=== PATIENT | female | born 1970 | race Caucasian/White ===

== ENCOUNTER 2023-03-28 18:22 | Inpatient (IN) | payer BC, SELFPAY ==
[2023-03-28] VITALS (7 sets, daily range): BP systolic 97–180; BP diastolic 65–94; BMI 27.0; BMI 27.4
[2023-03-28] MEDS: NSS 1000 IV ×2 (16:08→20:29)
--- NOTE | 2023-03-28 16:11 | ED.GENMED ---
History of Present Illness
General
Chief Complaint: Breathing Problem
Time Seen by Provider: 03/28/23 15:58
Travel History
Have you had any contact with someone who has COVID-19?: No
Do you have any symptoms of coronavirus? Fever > 100 degrees, chills, cough, shortness of breath, sore throat, loss of taste or smell, muscle aches, or headache?: Yes
Symptoms:: SOB
History of Present Illness
History of Present Illness:
50-year-old previously healthy female presents to the emergency department for evaluation of right-sided chest discomfort associated with shortness of breath and minimal coughing for the past 3 to 5 days. She also reports poor appetite,
lightheadedness, and general malaise. Denies any preceding viral syndrome in the past month. No leg swelling or calf cramping. No orthopnea but does have dyspnea on exertion. Denies any hemoptysis. No recent travel, prolonged immobilization,
recent surgeries in the past 12 weeks. Does not take any exogenous hormones. No ill contacts at home. Non-smoker
Review of Systems
Review of Systems
Allergies reviewed?: Yes
All Other Systems: ROS reviewed and negative except as documented in HPI and ROS
Phy Exam
Physical Exam
Physical Exam:
GEN: Well appearing, NAD, WDWN
Eyes: PERRLA, EOMs intact, no scleral icterus
HENT: NCAT, oral mucosa moist
Lungs: Tachypneic with no accessory muscle use, poor inspiratory effort limits exam, no clear adventitious lung sounds
Cardiac: RRR, no M/R/G, no peripheral edema. Radial pulses 2+ bilat
Abdomen: S, NT, ND, NABS, no masses or hepatosplenomegaly
Neuro: AO x 3
MSK: No gross deformity or ecchymosis.
Skin: No rashes, petechiae. Normal color, no pallor or jaundice.
Psych: Calm, cooperative, proper hygiene
Scores
Heart Failure Risk
Heart Failure Risk Score: Not Applicable
Course
Orders/Labs/Results
Orders:
Orders
03/28/23 15:55
EKG [Electrocardiogram (*1)] Urgent
Reason for Study: Shortness of Breath
EKG- Treatment ONCE
03/28/23 16:07
0.9% Sodium Chloride 1000 ml [Nss] 1,000 ml IV BOLUS
03/28/23 16:10
Cardiac Monitoring- Treatment ONCE
CR Chest - 2 Views Urgent
Comment:
Reason For Exam: fever, R chest pain, cough
03/28/23 16:20
COVID-19 Antigen Urgent
Source: Nasal Swab
Complete Blood Count/With Diff Urgent
Comprehensive Metabolic Panel Urgent
Glycohemoglobin (HgbA1c) Urgent
Lactic Acid Q4H
Comment: CANCEL 2nd LACTIC ACID IF 1st LACTIC ACID IS LESS THAN 2
NT-proBNP Urgent
Prothrombin Time Urgent
Troponin I Urgent
Blood Culture Q30M
ROSIO Source: Blood/Venous
Specimen Description:
Influenza A+B Rapid Molecular Urgent
ROSIO Source: Nasal Swab
Specimen Description:
03/28/23 16:34
Blood Culture Q30M
ROSIO Source: Blood/Venous
Specimen Description:
03/28/23 16:47
Acetaminophen [Tylenol] 1,000 mg PO NOW STA
Azithromycin 500 mg/250 ml [Zithromax Infusion] 500 mg in 250 ml IV NOW
CefTRIAXone [Rocephin] 1,000 mg IV NOW STA
03/28/23 17:38
CT Chest Pe Study Urgent
Comment:
Reason For Exam: R chest pain, wedge shaped PNA
03/28/23 18:09
Admit/Transfer Patient As Directed
Co-Sign Provider:
Level of Care: Inpatient admission
Assign to:: Medical/Surgical
Physician / Group: Hospitalist
Diagnosis: RUL PNA
Reason for Hospitalization: RUL PNA
Expected length of stay greater than two midnights?: Yes
ELOS- Estimated Length of Stay in days: 3
I certify the patient meets the requirements for IP care: Yes
03/28/23 18:10
Code Status As Directed
Resuscitation Status: Full Code
03/28/23 19:28
0.9% Sodium Chloride 1000 ml [Nss] 1,000 ml IV 200 mls/hr
03/28/23 19:28
Respiratory Culture/Gram Stain Routine
ROSIO Source: Sputum
Specimen Description:
Activity As Directed
Activity Level: Out of Bed-Early Mobility
Intake/ Output As Directed
Frequency: Per unit guidelines
Pneumatic Compression Sleeves As Directed
Type: Knee high
Vital Signs As Directed
Frequency: Per unit guidelines
Weight As Directed
Frequency: Once
Comment: on admission
DX Deep Vein Thrombosis Video Routine
03/28/23 19:30
Ibuprofen [Motrin] 400 mg PO TIDPRN PRN
03/29/23 Breakfast
Regular
Basic Metabolic Panel IN AM
Complete Blood Count/No Diff IN AM
03/29/23 18:00
Azithromycin 500 mg/250 ml [Zithromax Infusion] 500 mg in 250 ml IV Q24H
CefTRIAXone [Rocephin] 1,000 mg IV Q24H
Abnormal Lab Results
03/28/23
16:20
WBC 19.7 H 10^3/uL
(4.8-10.8)
RBC 3.99 L 10^6/uL
(4.20-5.40)
Hct 34.5 L %
(37.0-47.0)
Abs Immat Gran (auto) 0.3 H 10^3/uL
(0-0.05)
Absolute Neuts (auto) 17.5 H 10^3/uL
(1.4-6.5)
Absolute Lymphs (auto) 0.8 L 10^3/uL
(1.2-3.4)
Absolute Monos (auto) 1.0 H 10^3/uL
(0.1-0.6)
Immature Gran % 1.7 H %
(0-0.5)
Neutrophils % 88.5 H %
(42.2-75.2)
Lymphocytes % 4.2 L %
(20.5-51.1)
PT 14.9 H Sec
(11.4-14.6)
Sodium 130 L mmol/L
(135-145)
Chloride 95 L mmol/L
(98-107)
Glucose 121 H mg/dl
(70-99)
ALT 36 H U/L
(0-35)
Alkaline Phosphatase 240 H U/L
(38-126)
03/28/23 16:20
03/28/23 16:20
Vital Signs
Initial and Last Documented VS:
Initial Vital Signs
Temp Pulse Resp BP Pulse Ox
99.0 F 140 18 180/94 99
03/28/23 15:53 03/28/23 15:53 03/28/23 15:53 03/28/23 15:53 03/28/23 15:53
Last Documented Vital Signs
Temp Pulse Resp BP Pulse Ox
97.7 F 114 18 106/76 96
03/28/23 19:00 03/28/23 19:00 03/28/23 19:00 03/28/23 19:00 03/28/23 19:00
MDM/Problems Addressed
MDM/Problems Addressed:
Initial diagnostic considerations include right-sided pneumonia, pulmonary embolism, viral syndrome with pleuritis, less likely NE or aortic dissection. Initial labs revealed leukocytosis with a dense right upper lobe infiltrate consistent with
acute. Although she has not found hypoxic, the density of the infiltrate coupled with leukocytosis is consistent with sepsis thus we will admit for IV antibiotics and close monitoring. At this time there is no indication for CTA of the chest given
that I feel pneumonia adequately explains the symptoms and the patient has no risk factor for pulmonary embolism otherwise
Comment
Comment:
Initial EKG independently interpreted by me shows sinus tachycardia at a rate of [address] changes concerning for ischemia, QTc of 416
*Critical Care Note
Total Time (30-74mins, 75-104mins- exclusive of procedures): Not Applicable
Update Note
Update Note:
1730: Case d/w hospitalist after eval. Concerning that pt had no viral prodrome prior to pneumonia symptoms. Lack of significant cough also concerning. Per hospitalist request will obtain CT chest to r/o PE, malignancy
ED Attending Note
-
Portions of this chart may have been created with voice recognition software.� Occasional wrong word or��sound alike� substitutions may have occurred due to the inherent limitations of voice recognition software.
Discharge Plan
Departure
Patient Disposition: Admit
Date of Disposition: 03/28/23
Time of Disposition: 16:52
Presentation/result/management discussed w/ accepting MD/DO: Hospitalist
Discharge Problem:
Right upper lobe pneumonia
Interventions
Interventions:
*Risk Screen - Suicide Last Done: 03/28/23 20:09
*General Assessment Last Done: 03/28/23 16:11
*Neglect/Abuse Screening Last Done: 03/28/23 16:11
ED- Fall Risk Assessment Last Done: 03/28/23 16:14
*ED COVID-19 Vaccine History Last Done: 03/28/23 16:11
*Nursing Disposition Last Done: 03/28/23 19:15
ED- Cardiac Assessment Last Done: 03/28/23 16:35
ED- Pulmonary Assessment Last Done: 03/28/23 16:35
Discharge Date and Time
Discharge Date/Time: 03/28/23 19:16
[2023-03-28 16:28] LABS: % Basophils 0.5 % (0-2); % Eosinophils 0.1 % (0-6); % Immature Granulocytes 1.7 % (0-0.5); % Lymphocytes 4.2 % (20.5-51.1); % Neutrophils 88.5 % (42.2-75.2); Absolute Basophils 0.1 10^3/uL (0-0.2); Absolute Immature Granulocytes 0.3 10^3/uL (0-0.05); Absolute Lymphocytes 0.8 10^3/uL (1.2-3.4); Absolute Neutrophils 17.5 10^3/uL (1.4-6.5); Hematocrit 34.5 % (37.0-47.0); Hemoglobin 12.2 g/dL (12.0-16.0); Mean Corp Hgb Conc. 35.4 g/dL (33.0-37.0); Mean Corpuscular Hgb 30.6 pg (27.0-31.0); Mean Corpuscular Volume 86.5 fL (81.0-99.0); Nucleated Red Blood Cells % 0 %; Platelet Count 310 10^3/uL (130-400); Red Blood Cell Count 3.99 10^6/uL (4.20-5.40); Red Cell Dist. Width 12.5 % (11.5-14.5); White Blood Cell Count 19.7 10^3/uL (4.8-10.8)
[2023-03-28 16:36] LABS: INR 1.18; PT 14.9 Sec (11.4-14.6)
[2023-03-28 16:43] LABS: Lactic Acid 1.8 mmol/L (0.7-2.0)
[2023-03-28 16:44] LABS: ALT (SGPT) 36 U/L (0-35); AST (SGOT) 31 U/L (14-36); Albumin 3.8 g/dl (3.5-5.0); Alkaline Phosphatase 240 U/L (38-126); Blood Urea Nitrogen 10 mg/dl (7-17); Calcium 8.9 mg/dl (8.4-10.2); Carbon Dioxide 25 mmol/L (22-30); Chloride 95 mmol/L (98-107); Estimated Creatinine Clearance 105 ml/min; Glucose 121 mg/dl (70-99); Potassium 3.6 mmol/L (3.5-5.1); Sodium 130 mmol/L (135-145); Total Bilirubin 0.9 mg/dl (0.2-1.3); Total Protein 7.7 g/dl (6.3-8.2); eGFR > 60.00
[2023-03-28 16:56] LABS: COVID-19 Antigen Negative (Negative); NT-proBNP 810 pg/ml; Troponin I < 0.012 ng/ml
[2023-03-28] MEDS: TYLENOL 1000 MG PO (17:00)
[2023-03-28] MEDS: ROCEPHIN 1000 MG IV (17:01)
--- NOTE | 2023-03-28 17:04 | EDRN ---
Dr. Diop in room w/ pt.
[2023-03-28] MEDS: ZITHROMAX INFUSION 250 IV (17:20)
--- NOTE | 2023-03-28 18:00 | HPS.HSE ---
Family Physician
-
Family Physician: Jose Rogers
Chief Complaint
-
Fever, chest pain
History of Present Illness
50-year-old previously healthy woman presents with right-sided chest discomfort associated with shortness of breath and minimal coughing for the past 5 days.� She also reports poor appetite, lightheadedness, and general malaise.� Denies any
preceding viral syndrome in the past month, no travel. No sick contacts.� No leg swelling or calf cramping.� No orthopnea but has dyspnea on exertion.� Denies hemoptysis, prolonged immobilization, recent surgeries in the past 12 weeks.� Does not
take any exogenous hormones.� No ill contacts at home.� Non-smoker. At the time of my exam she was tachycardic with rate in 130s.
Medical History
Past Medical History
Past Medical History: Reports None
Past Surgical History: Reports None
Social History
Tobacco: Non-smoker
Alcohol: Daily
Drug: None
Personal:
Living: With Family
Employment: Employed
Family History
Family History: Other (Mother of PNA.)
Allergies / Home Medications
Allergies reflects when Allergies were last updated in [facility].
Home Medications with original date entered in [facility]
Allergy/Medication List:
Allergies
Allergy/AdvReac Type Severity Reaction Status Date / Time
Penicillins Allergy Hives Verified 03/28/23 15:54
Home Medications
ibuprofen 200 mg tablet 400 mg PO TIDPRN PRN mild pain 03/28/23
Review of Systems
-
History Source: Patient
A 12 point ROS was completed and negative except as noted: Yes
Physical Exam
Vital Signs
Vital Signs
Temp Pulse Resp BP Pulse Ox
103.2 F H 118 38 134/86 99
03/28/23 16:35 03/28/23 17:15 03/28/23 17:15 03/28/23 17:00 03/28/23 16:48
Physical Exam
General: Well Developed, Well Nourished, No Apparent Distress, Comfortable and Conversant
HEENT: NormoCephalic, Anicteric, Moist mucous membranes, Atraumatic, Nose Appears Normal and Ears Appear Normal
Respiratory: Rhonchi and Crackles
Cardiac: S1/S2 and Tachycardia
GI: Soft, Non Tender and Non Distended
Musculoskeletal: No Clubbing, No Cyanosis and No Edema
Skin: Warm and Dry; No Rash or Jaundice
Neuro: Awake, Alert and AO x 3
Psych: Calm
Laboratory Results
-
03/28/23 16:20
03/28/23 16:20
Laboratory Results
PT 14.9 Sec (11.4-14.6) H 03/28/23 16:20
INR 1.18 03/28/23 16:20
Lactic Acid Cancelled 03/28/23 20:15
Total Bilirubin 0.9 mg/dl (0.2-1.3) 03/28/23 16:20
AST 31 U/L (14-36) 03/28/23 16:20
ALT 36 U/L (0-35) H 03/28/23 16:20
Alkaline Phosphatase 240 U/L (38-126) H 03/28/23 16:20
Troponin I < 0.012 ng/ml 03/28/23 16:20
Data Reviewed
-
Lab Data: Labs Reviewed by me
Impression/Plan
-
IMPRESSION:
52 woman with RUL PNA, no obvious cause.
PLAN:
1. RUL PNA - no obvious cause. Need to rule out complications such as PE and post obstructive.
CT in ED ordered
Otherwise:
ABx per protocol
IV fluids
2. Tachycardia - likely from PNA
IV fluids
3. Family h/o DM, and overweight
Cehck HG A1c
VCD for DVTp
Full code
[2023-03-28] MEDS: MOTRIN 400 MG PO (21:05)
[2023-03-29] MEDS: NSS 1000 IV ×2 (01:31→07:04)
[2023-03-29] MEDS: MOTRIN 400 MG PO (01:34)
[2023-03-29] MEDS: MELATONIN 5 MG PO ×2 (01:42→22:17)
[2023-03-29] MEDS: TYLENOL 650 MG PO ×2 (03:13→15:41)
[2023-03-29 07:30] VITALS: BP 130/81
[2023-03-29 08:24] LABS: Hematocrit 31.5 % (37.0-47.0); Hemoglobin 10.7 g/dL (12.0-16.0); Mean Corpuscular Volume 91.3 fL (81.0-99.0); Mean Platelet Volume 9.4 fL (7.4-10.4); Platelet Count 287 10^3/uL (130-400); Red Blood Cell Count 3.45 10^6/uL (4.20-5.40); Red Cell Dist. Width 12.9 % (11.5-14.5)
[2023-03-29 09:05] LABS: Blood Urea Nitrogen 8 mg/dl (7-17); Calcium 7.8 mg/dl (8.4-10.2); Carbon Dioxide 20 mmol/L (22-30); Chloride 108 mmol/L (98-107); Estimated Creatinine Clearance 103 ml/min; Glucose 99 mg/dl (70-99); Potassium 3.3 mmol/L (3.5-5.1); Sodium 137 mmol/L (135-145); eGFR > 60.00
[2023-03-29 09:10] LABS: Glycohemoglobin (HgbA1c) 5.5 % (4.0-5.6)
--- NOTE | 2023-03-29 10:20 | W.PN.HOSP.TC ---
Today's Communication/Plan
-
Continue antibiotics
IV Toradol
Assessment / Plan
Assessment / Plan
Gen-AAOx3, NAD
HEENT-NC, AT, anicteric, clear oral mm
Neck-supple
CV-reg, no M, +S1/S2
Lungs-clear B/L
Abd-soft, NT, ND
Ext-no edema
Musculoskeletal-no cyanosis, clubbing
Skin-warm and dry
Neuro-grossly non-focal
Psych-calm, cooperative
Community-acquired pneumonia -right upper lobe on CT scan. Has never had pneumonia before. Risk factors daily alcohol consumption. Continue antibiotics, check urinary antigens. Add Toradol IV [id number] for her chest pain. CT shows no
evidence of pulmonary embolism. She does not smoke. White blood cell count coming down. Afebrile.
Denies any sick contacts.
Alcohol use disorder - consumes 4 beers daily. States her last drink was on Wednesday of last week. Counseled to reduce or abstain ideally. Watch for any withdrawal symptoms.
Hyponatremia -present on admission. Resolved.
Hypokalemia -replete orally. Check magnesium.
Full code
Anticipated Discharge: 24 - 48 hours
Subjective/Interval History
-
Date of Service: March 29, 2023
Patient seen and examined. Did not sleep well, complaining of lack of appetite, complaining of chest pain with deep breathing.
Objective Data
-
Labs:
Laboratory Results
03/29/23
07:53
WBC 16.0 H
Hgb 10.7 L
Hct 31.5 L
Plt Count 287
Sodium 137
Potassium 3.3 L
Chloride 108 H
Carbon Dioxide 20 L
BUN 8
Creatinine 0.6
Glucose 99
Calcium 7.8 L
Vital Signs:
Vital Signs
Temp Pulse Resp BP Pulse Ox
98 F 99 22 130/81 96
03/29/23 07:30 03/29/23 07:30 03/29/23 07:30 03/29/23 07:30 03/29/23 07:30
I&O
03/28/23 03/29/23 03/30/23
06:59 06:59 06:59
Intake Total 2440 / 2440
Balance 2440 / 2440
Review of Systems
-
History Source: Patient
All other systems: Reviewed and negative
[2023-03-29] MEDS: KCL 40 MEQ PO (10:42)
[2023-03-29] MEDS: TORADOL 30 MG IV ×2 (10:42→17:54)
[2023-03-29 15:35] VITALS: BP 112/66
--- NOTE | 2023-03-29 15:44 | CM ---
Patient seen bedside.
IA completed.
Patient lives with spouse and 2 kids in a 2 story home.
Patient independent prior to admission without assistive devices.
Patient drives.
patient has not had VN.
patient denies home care needs.
Plan: home no needs anticipated.
[2023-03-29 15:45] VITALS: BP 112/66
[2023-03-29] MEDS: ZITHROMAX INFUSION 250 IV (17:53)
[2023-03-29] MEDS: ROCEPHIN 1000 MG IV (17:54)
[2023-03-29] MEDS: STERILE WATER FOR INJECTION 10 ML IV (17:54)
[2023-03-29 23:37] VITALS: BP 122/68
[2023-03-30] MEDS: TYLENOL 650 MG PO ×2 (00:46→11:00)
[2023-03-30 07:30] VITALS: BP 154/81
[2023-03-30] MEDS: TORADOL 30 MG IV (07:53)
--- NOTE | 2023-03-30 09:37 | W.PN.HOSP.TC ---
Addendum entered and electronically signed by Davion Dash DO 03/30/23 12:30:
Pulse ox 97% on room air at rest, 96% on room air during ambulation. She walked 294 feet. Can discharge today. Outpatient follow-up.
Original Note:
Today's Communication/Plan
-
Ambulatory pulse ox on room air
Possible discharge
Assessment / Plan
Assessment / Plan
Gen-AAOx3, NAD
HEENT-NC, AT, anicteric, clear oral mm
Neck-supple
CV-reg, no M, +S1/S2
Lungs-clear B/L
Abd-soft, NT, ND
Ext-no edema
Musculoskeletal-no cyanosis, clubbing
Skin-warm and dry
Neuro-grossly non-focal
Psych-calm, cooperative
Community-acquired pneumonia -right upper lobe on CT scan. Has never had pneumonia before. Risk factors daily alcohol consumption. Continue antibiotics. Urinary antigens negative. Blood cultures negative. Afebrile. Check ambulatory pulse ox
on room air. Potential discharge later today on antibiotics and ibuprofen as needed. Follow-up with PCP within 1 week. Patient agreeable to plan. Discussed with nursing.
Alcohol use disorder - consumes 4 beers daily. States her last drink was on Wednesday of last week. Counseled to reduce or abstain ideally. Watch for any withdrawal symptoms.
Hyponatremia -present on admission. Resolved.
Hypokalemia -replete orally. Magnesium normal.
Full code
Dispo -possible discharge later today.
32 minutes spent in discharge process.
Anticipated Discharge: Today
Subjective/Interval History
-
Date of Service: March 30, 2023
Patient seen and examined. Complaining of lack of appetite, mild dyspnea on exertion, still with chest pain.
Objective Data
-
Vital Signs:
Vital Signs
Temp Pulse Resp BP Pulse Ox
98.1 F 100 21 154/81 98
03/30/23 07:30 03/30/23 07:30 03/30/23 07:30 03/30/23 07:30 03/30/23 07:30
I&O
03/29/23 03/30/23 03/31/23
06:59 06:59 06:59
Intake Total 2440 / 2440 2580 / 2580
Balance 2440 / 2440 2580 / 2580
Review of Systems
-
History Source: Patient
All other systems: Reviewed and negative
--- NOTE | 2023-03-30 10:08 | CM ---
Addendum entered by Aleyda Bianchi 03/30/23 11:30:
No home oxygen needs.
Original Note:
Patient seen bedside.
Home oxygen assessment ordered.
No VN needs.
Plan: possible d/c home today, watch for home oxygen needs.
--- NOTE | 2023-03-30 12:30 | W.DS.TRANS ---
DC Summary - Hide Stretcher Hand
-
Discharge Instructions:
Discharge Diagnosis/Procedures Community-acquired pneumonia
Diet Regular
Activity As tolerated
Driving Restrictions As prior to admission
Bathing Restrictions None
Instructions:
Stand-Alone Forms:
Changes to Home Medications: No
Discharge Medications:
DC Medications w/original date entered in [employer]
cefpodoxime 200 mg tablet 200 mg PO Q12H #10 tabs 03/30/23
ibuprofen 800 mg tablet 800 mg PO Q6H PRN Pain #30 tabs 03/30/23
Home Medication Changes
Pending Results: No
== END 2023-03-30 13:57 | disposition home or self-care (01) | DRG 194 ==
LOC: 4 WEST ACU 18:22
PROVIDERS: Physician Assistant; ADMITTING PHYSICIAN Internal Medicine; ATTENDING PHYSICIAN Hospitalist; EMERGENCY PHYSICIAN Emergency Medicine; FAMILY PHYSICIAN Family Medicine
DX: J18.9 Pneumonia, unspecified organism (principal); E87.1 Hypo-osmolality and hyponatremia; E87.6 Hypokalemia; Z11.52 Encounter for screening for COVID-19
CPT/HCPCS: 71046; 71275; 80048; 80053; 83036; 83605; 83735; 83880; 84484; 85025; 85027; 85610; 87040; 87449; 87502; 87811; 87899; 93005; 96361; 96365; 96375; 99285; Q9967

== ENCOUNTER → 2023-04-06 11:47 | Outpatient (REF) | payer BC, SELFPAY | LOC: HWRAD 11:47 | PROVIDERS: ATTENDING PHYSICIAN Family Medicine | DX: J18.9 Pneumonia, unspecified organism (principal) | CPT/HCPCS: 71046 ==

== ENCOUNTER → 2023-05-04 13:24 | Outpatient (REF) | payer BC, SELFPAY ==
[2023-05-04 15:23] LABS: % Basophils 0.8 % (0-2); % Eosinophils 0.9 % (0-6); % Immature Granulocytes 0.3 % (0-0.5); % Lymphocytes 39.3 % (20.5-51.1); % Monocytes 5.9 % (1.7-9.3); % Neutrophils 52.8 % (42.2-75.2); Absolute Basophils 0.1 10^3/uL (0-0.2); Absolute Eosinophils 0.1 10^3/uL (0-0.7); Absolute Lymphocytes 2.5 10^3/uL (1.2-3.4); Absolute Monocytes 0.4 10^3/uL (0.1-0.6); Absolute Neutrophils 3.4 10^3/uL (1.4-6.5); Hematocrit 37.5 % (37.0-47.0); Hemoglobin 12.6 g/dL (12.0-16.0); Mean Corp Hgb Conc. 33.6 g/dL (33.0-37.0); Mean Corpuscular Volume 86.4 fL (81.0-99.0); Mean Platelet Volume 9.3 fL (7.4-10.4); Nucleated Red Blood Cells % 0 %; Platelet Count 384 10^3/uL (130-400); Red Blood Cell Count 4.34 10^6/uL (4.20-5.40); Red Cell Dist. Width 12.7 % (11.5-14.5); White Blood Cell Count 6.4 10^3/uL (4.8-10.8)
[2023-05-04 15:29] LABS: Urine Albumin Negative (Neg - Trace); Urine Bilirubin Negative (Negative); Urine Character Clear (Clear); Urine Color Yellow; Urine Glucose Negative (Negative); Urine Ketone Negative (Negative); Urine Leukocyte Trace (Negative); Urine Nitrite Negative (Negative); Urine Occult Blood Negative (Negative); Urine Specific Gravity 1.015 (<1.030); Urine Urobilinogen Negative (Neg - 1+)
[2023-05-04 15:43] LABS: ALT (SGPT) 33 U/L (0-35); AST (SGOT) 43 U/L (14-36); Albumin 4.9 g/dl (3.5-5.0); Alkaline Phosphatase 136 U/L (38-126); Blood Urea Nitrogen 15 mg/dl (7-17); Calcium 10.9 mg/dl (8.4-10.2); Carbon Dioxide 25 mmol/L (22-30); Chloride 101 mmol/L (98-107); Glucose 96 mg/dl (70-99); HDL Cholesterol 42 mg/dl; LDL Cholesterol, Calculated 169 mg/dl; Potassium 4.4 mmol/L (3.5-5.1); Sodium 138 mmol/L (135-145); Total Bilirubin 0.4 mg/dl (0.2-1.3); Total Cholesterol 256 mg/dl (50-199); Total Protein 9.4 g/dl (6.3-8.2); Triglyceride 228 mg/dl (10-149); Very Low Density Lipoprotein 45 mg/dl (0-30); eGFR > 60.00
[2023-05-04 15:48] LABS: Urine Squamous Cell 16-20 /LPF (Few)
[2023-05-04 15:49] LABS: Urine White Cell 0-2 /HPF (0-5)
[2023-05-04 15:50] LABS: Urine Bacteria Few (Negative)
[2023-05-04 16:13] LABS: TSH Reflex To Free T4 1.99 uIU/ml (0.47-4.68)
[2023-05-05 09:00] LABS: Glycohemoglobin (HgbA1c) 5.7 % (4.0-5.6)
== END ==
LOC: HWLAB 13:24
PROVIDERS: ATTENDING PHYSICIAN Family Medicine
DX: J18.9 Pneumonia, unspecified organism (principal); Z29.9 Encounter for prophylactic measures, unspecified
CPT/HCPCS: 36415; 71046; 80053; 80061; 81003; 81015; 83036; 84443; 85025

== ENCOUNTER → 2023-07-16 12:43 | Outpatient (REF) | payer BC, SELFPAY ==
[2023-07-16 15:16] LABS: ALT (SGPT) 35 U/L (0-35); AST (SGOT) 40 U/L (14-36); Albumin 4.8 g/dl (3.5-5.0); Alkaline Phosphatase 176 U/L (38-126); Blood Urea Nitrogen 17 mg/dl (7-17); Calcium 11.1 mg/dl (8.4-10.2); Carbon Dioxide 25 mmol/L (22-30); Chloride 101 mmol/L (98-107); Glucose 99 mg/dl (70-99); HDL Cholesterol 65 mg/dl; LDL Cholesterol, Calculated 195 mg/dl; Potassium 4.2 mmol/L (3.5-5.1); Sodium 138 mmol/L (135-145); Total Bilirubin 0.5 mg/dl (0.2-1.3); Total Cholesterol 283 mg/dl (50-199); Total Protein 9.2 g/dl (6.3-8.2); Triglyceride 115 mg/dl (10-149); Very Low Density Lipoprotein 23 mg/dl (0-30); eGFR > 60.00
== END ==
LOC: HWLAB 12:43
PROVIDERS: ATTENDING PHYSICIAN Family Medicine
DX: E78.2 Mixed hyperlipidemia (principal)
CPT/HCPCS: 36415; 80053; 80061

== ENCOUNTER → 2023-08-02 10:59 | Outpatient (REF) | payer BC, SELFPAY ==
[2023-08-02 16:33] LABS: Calcium 11.1 mg/dl (8.4-10.2)
[2023-08-02 17:57] LABS: Intact PTH 16.6 pg/ml (13.6-85.8)
== END ==
LOC: HWRAD 10:59
PROVIDERS: ATTENDING PHYSICIAN Family Medicine
DX: R74.8 Abnormal levels of other serum enzymes (principal)
CPT/HCPCS: 36415; 76700; 83970

== ENCOUNTER → 2023-08-04 15:31 | Outpatient (REF) | payer BC, SELFPAY | LOC: HWWDC 15:31 | PROVIDERS: ATTENDING PHYSICIAN Family Medicine | DX: Z12.31 Encounter for screening mammogram for malignant neoplasm of breast (principal) | CPT/HCPCS: 77063; 77067 ==

== ENCOUNTER → 2023-09-29 08:14 | Outpatient (REF) | payer BC, SELFPAY ==
[2023-09-29 11:08] LABS: ALT (SGPT) 33 U/L (0-35); AST (SGOT) 46 U/L (14-36); Albumin 4.9 g/dl (3.5-5.0); Alkaline Phosphatase 140 U/L (38-126); Blood Urea Nitrogen 14 mg/dl (7-17); Calcium 10.3 mg/dl (8.4-10.2); Carbon Dioxide 25 mmol/L (22-30); Chloride 102 mmol/L (98-107); Glucose 95 mg/dl (70-99); HDL Cholesterol 66 mg/dl; LDL Cholesterol, Calculated 83 mg/dl; Potassium 4.7 mmol/L (3.5-5.1); Sodium 138 mmol/L (135-145); Total Bilirubin 0.7 mg/dl (0.2-1.3); Total Cholesterol 174 mg/dl (50-199); Total Protein 8.7 g/dl (6.3-8.2); Triglyceride 125 mg/dl (10-149); Very Low Density Lipoprotein 25 mg/dl (0-30); eGFR > 60.00
== END ==
LOC: HWLAB 08:14
PROVIDERS: ATTENDING PHYSICIAN Family Medicine
DX: E78.2 Mixed hyperlipidemia (principal)
CPT/HCPCS: 36415; 80053; 80061

== ENCOUNTER → 2024-04-05 09:36 | Outpatient (REF) | payer BC, SELFPAY ==
[2024-04-05 12:49] LABS: % Basophils 0.8 % (0-2); % Eosinophils 1.3 % (0-6); % Immature Granulocytes 1.3 % (0-0.5); % Lymphocytes 28.7 % (20.5-51.1); % Monocytes 6.9 % (1.7-9.3); Absolute Basophils 0.1 10^3/uL (0-0.2); Absolute Eosinophils 0.1 10^3/uL (0-0.7); Absolute Immature Granulocytes 0.1 10^3/uL (0-0.05); Absolute Lymphocytes 2.4 10^3/uL (1.2-3.4); Absolute Monocytes 0.6 10^3/uL (0.1-0.6); Absolute Neutrophils 5.1 10^3/uL (1.4-6.5); Hematocrit 36.1 % (37.0-47.0); Hemoglobin 12.3 g/dL (12.0-16.0); Mean Corp Hgb Conc. 34.1 g/dL (33.0-37.0); Mean Corpuscular Hgb 30.6 pg (27.0-31.0); Mean Corpuscular Volume 89.8 fL (81.0-99.0); Nucleated Red Blood Cells % 0 %; Platelet Count 312 10^3/uL (130-400); Red Blood Cell Count 4.02 10^6/uL (4.20-5.40); Red Cell Dist. Width 12.4 % (11.5-14.5); White Blood Cell Count 8.3 10^3/uL (4.8-10.8)
[2024-04-05 13:06] LABS: ALT (SGPT) 37 U/L (0-35); AST (SGOT) 38 U/L (14-36); Albumin 4.8 g/dl (3.5-5.0); Alkaline Phosphatase 195 U/L (38-126); Blood Urea Nitrogen 14 mg/dl (7-17); Calcium 10.4 mg/dl (8.4-10.2); Carbon Dioxide 22 mmol/L (22-30); Chloride 101 mmol/L (98-107); Glucose 109 mg/dl (70-99); HDL Cholesterol 67 mg/dl; LDL Cholesterol, Calculated 88 mg/dl; Potassium 4.8 mmol/L (3.5-5.1); Sodium 138 mmol/L (135-145); Total Bilirubin 0.5 mg/dl (0.2-1.3); Total Cholesterol 179 mg/dl (50-199); Total Protein 8.8 g/dl (6.3-8.2); Triglyceride 122 mg/dl (10-149); Very Low Density Lipoprotein 24 mg/dl (0-30); eGFR > 60.00
[2024-04-05 13:21] LABS: Urine Albumin Negative (Neg - Trace); Urine Bilirubin Negative (Negative); Urine Character Clear (Clear); Urine Color Yellow; Urine Glucose Negative (Negative); Urine Ketone Negative (Negative); Urine Leukocyte Negative (Negative); Urine Nitrite Negative (Negative); Urine Occult Blood Negative (Negative); Urine Specific Gravity 1.005 (<1.030); Urine Urobilinogen Negative (Neg - 1+); Urine pH 6.5 (5.0-9.0)
[2024-04-05 13:27] LABS: Glycohemoglobin (HgbA1c) 5.5 % (4.0-5.6)
[2024-04-05 13:34] LABS: TSH Reflex To Free T4 1.22 uIU/ml (0.47-4.68)
== END ==
LOC: HWLAB 09:36
PROVIDERS: ATTENDING PHYSICIAN Family Medicine
DX: E83.52 Hypercalcemia (principal); R77.8 Other specified abnormalities of plasma proteins; Z29.9 Encounter for prophylactic measures, unspecified; I10 Essential (primary) hypertension; E78.2 Mixed hyperlipidemia; R73.01 Impaired fasting glucose
CPT/HCPCS: 36415; 80053; 80061; 81003; 83036; 84443; 85025

== ENCOUNTER → 2025-01-09 10:51 | Outpatient (REF) | payer BC, SELFPAY | LOC: REG 10:51 | PROVIDERS: ATTENDING PHYSICIAN Nurse Practitioner Family | DX: R05.9 Cough, unspecified (principal) | CPT/HCPCS: 71046 ==